=== PATIENT | female | born 1985 | race Caucasian/White ===

== ENCOUNTER 2017-01-25 08:50 | Emergency (ER) | payer SELFPAY ==
[~2017-01-25] VITALS: Ht 167.6 cm; Wt 68.0 kg
[2017-01-25 08:52] VITALS: BP 129/73; PULSE 96; RESP 18; TEMP 98.6; O2SAT 99
--- NOTE | 2017-01-25 11:22 | PD ---
HPI . Dentalgia Chief Complaint: Oral / Dental Pain or Problem Time Seen by Provider: 09:42 Travel History International Travel<30 days: No Contact w/Intl Traveler<30days: No Traveled to known affect area: No History of Present Illness HPI 31-year-old female presents emergency department for evaluation of dentalgia associated with tooth #31 and 32 that started this morning. She denies any fever, chills, malaise, chest pain, shortness breath. Patient has multiple cracked and broken teeth on the right lower side. Patient has history of depression and bipolar. Allergies-Medications (Allergen,Severity, Reaction): Coded Allergies: No Known Allergies (Unverified Allergy, Unknown, 01/25/17) Penicillins (Verified Allergy, Unknown, Hives, 01/25/17) Review of Systems Except as stated in HPI: all other systems reviewed are Neg Physical Exam Narrative GENERAL: Well-nourished, well-developed 31-year-old female patient in no acute distress. Nontoxic appearing. SKIN: Focused skin assessment warm/dry. HEAD: Normocephalic. Atraumatic. EYES: No scleral icterus. No injection or drainage. MOUTH: Mucous membranes moist, no lesions, tongue and gums appear normal. NECK: Supple, trachea midline. No JVD or lymphadenopathy. CARDIOVASCULAR: Regular rate and rhythm without murmurs, gallops, or rubs. RESPIRATORY: Breath sounds equal bilaterally. No accessory muscle use. GASTROINTESTINAL: Abdomen soft, non-tender, nondistended. MUSCULOSKELETAL: No cyanosis, or edema. Data Data Last Documented VS Vital Signs Date Time Temp Pulse Resp B/P (MAP) Pulse Ox O2 Delivery O2 Flow Rate FiO2 01/25/17 08:52 98.6 96 18 129/73 (91) 99 Room Air [facility] Medical Screen Exam Complete: Yes Emergency Medical Condition: Yes Differential Diagnosis Differential diagnoses include but not limited to dentalgia, dental caries, toothache Narrative Course 31-year-old female presents emergency department for evaluation of dentalgia on the right lower aspect associated with tooth #31 and 32. There is no signs or symptoms of localized infection, gingival edema or abscess formation. Patient has no fever or chills. Patient is nontoxic-appearing. Symptoms started this morning. A medical screening exam was performed: At the time of evaluation the presenting medical condition was determined not to be of an emergent nature. The patient was given the option of receiving additional care, but declined. Patient was given options for additional community resources from which to obtain care. The Patient Has Been advised to seek medical attention for their presenting complaint. The patient has been advised to return to the ER at any time if an emergent condition develops.m Primary Impression: Encounter for medical screening examination Disposition: 07 EDGO-ED USE ONLY Pili Goldman Jan 25, 2017 11:22
== END 2017-01-25 10:12 | disposition left against medical advice (07) ==
LOC: NEPD 08:50
DX: K08.89 Other specified disorders of teeth and supporting structures (principal); F31.9 Bipolar disorder, unspecified
CPT/HCPCS: 99281

== ENCOUNTER 2017-02-20 13:01 | Emergency (ER) | payer SELFPAY ==
[~2017-02-20] VITALS: Ht 167.6 cm; Wt 68.0 kg
[2017-02-20 13:02] VITALS: BP 135/85; PULSE 97; RESP 18; TEMP 98.7; O2SAT 99
[2017-02-20] MEDS ORDERED: CELE20TA PO (14:09)
[2017-02-20] MEDS ORDERED: TRAZ50TA12 PO (14:09)
[2017-02-20] MEDS ORDERED: CLIN150C14 PO (14:59)
--- NOTE | 2017-02-20 14:59 | PD ---
HPI Chief Complaint: Skin Problem Time Seen by Provider: 14:29 Travel History International Travel<30 days: No Contact w/Intl Traveler<30days: No Traveled to known affect area: No History of Present Illness HPI The patient's 31 years old and complains of dental pain on the right lower side. She has had intermittent dental pain for one day. Associated symptoms include facial swelling. It also feels warm to the touch. She was seen here previously and told she had no infectious process however should she develop erythema or warmth to return and she returns today and consequently. PFSH Past Medical History Diminished Hearing: No Gastrointestinal Disorders: Yes (Hep C) Tetanus Vaccination: Unknown ?: Not LMP: 02/03/17 Past Surgical History Surgical History: No Previous Surgery Social History Alcohol Use: No Tobacco Use: Yes (/2 ppd) Substance Use: No Allergies-Medications (Allergen,Severity, Reaction): Coded Allergies: No Known Allergies (Unverified Allergy, Unknown, 01/25/17) Penicillins (Verified Allergy, Unknown, Hives, 01/25/17) Reported Meds & Prescriptions Reported Meds & Active Scripts Active Clindamycin (Clindamycin HCl) 150 Mg Cap 450 Mg PO Q8HR 7 Days Reported Celexa (Citalopram Hydrobromide) 20 Mg Tab 20 Mg PO DAILY Trazodone (Trazodone HCl) 50 Mg Tab 50 Mg PO HS Review of Systems General / Constitutional: No: Fever HENT: No: Headaches Cardiovascular: No: Chest Pain or Discomfort Respiratory: No: Shortness of Breath Physical Exam Narrative GENERAL: 31 yo F, WNWD, NAD DENTITION: Poor dentition with multiple dental fracture. Tenderness along lower right molars. Minimal swelling/tenderness about the R mandibular ramus. SKIN: Warm and dry. HEAD: Normocephalic. EYES: No scleral icterus. No injection or drainage. NECK: Supple, trachea midline. No JVD or lymphadenopathy. Data Data Last Documented VS Vital Signs Date Time Temp Pulse Resp B/P (MAP) Pulse Ox O2 Delivery O2 Flow Rate FiO2 02/20/17 13:02 98.7 97 18 135/85 (102) 99 VS reviewed Orders Orders Ed Discharge Order (02/20/17 15:08) MDM Medical Decision Making Medical Screen Exam Complete: Yes Emergency Medical Condition: Yes Medical Record Reviewed: Yes Differential Diagnosis carry, fracture, abscess Narrative Course pcn allergy clinda script dc with dentist follow up Diagnosis Primary Impression: Dentalgia Referrals: Dentist 2 days Med/Other Pt SpecificInfo: Prescription(s) given Scripts Clindamycin (Clindamycin) 150 Mg Cap 450 MG PO Q8HR for Infection for 7 Days, CAP 0 Refills Prov: Todd Carmona MD 02/20/17 Disposition: 01 DISCHARGE HOME Condition: Stable Todd Carmona MD Feb 20, 2017 14:59
== END 2017-02-20 15:29 | disposition home or self-care (01) ==
LOC: NEPD 13:01
DX: K08.89 Other specified disorders of teeth and supporting structures (principal); F17.200 Nicotine dependence, unspecified, uncomplicated; Z86.19 Personal history of other infectious and parasitic diseases; Z79.899 Other long term (current) drug therapy
CPT/HCPCS: 99283

== ENCOUNTER 2017-05-09 13:12 | Inpatient (IN) | payer SELFPAY ==
[~2017-05-09 13:12] MED LIST: CELE20TA PO; CLIN150C14 PO; TRAZ50TA12 PO
[2017-05-09 13:59] VITALS: BP 104/56; PULSE 126; TEMP 98.5; O2SAT 97
[2017-05-09 14:36] LABS: BILIRUBIN, URINE NEG (NEG); BLOOD, URINE NEG (NEG); GLUCOSE,URINE NEG (NEG); HYALINE CAST, URINE 8 /lpf (RARE); KETONE, URINE 40 mg/dL (NEG); MUCUS URINE FEW /lpf (OCC); NITRITE,URINE NEG (NEG); PH, URINE 5.5 (5.0-8.5); SQUAMOUS EPITHELIAL CELL URINE 1 /hpf (0-5); URINE COLOR YELLOW (YELLW/STRAW); URINE LEUKOCYTE ESTERASE NEG (NEG)
[2017-05-09 14:43] LABS: AUTOMATED NEUTROPHIL # 12.3 TH/MM3 (1.8-7.7); BASOPHIL # 0.1 TH/MM3 (0-0.2); BASOPHIL % 0.5 % (0.0-2.0); EOSINOPHIL # 0.1 TH/MM3 (0-0.4); EOSINOPHIL % 0.7 % (0.0-4.0); HEMATOCRIT 42.3 % (35.0-46.0); HEMOGLOBIN 14.1 GM/DL (11.6-15.3); LYMPH % 16.4 % (9.0-44.0); LYMPHOCYTE # 2.6 TH/MM3 (1.0-4.8); MEAN CELL VOLUME 91.6 FL (80.0-100.0); MEAN CORPUSCULAR HEMOGLOBIN 30.6 PG (27.0-34.0); MEAN CORPUSCULAR HGB CONC 33.4 % (32.0-36.0); MEAN PLATELET VOLUME 8.2 FL (7.0-11.0); MONO % 5.5 % (0.0-8.0); MONOCYTE # 0.9 TH/MM3 (0-0.9); NEUT % 76.9 % (16.0-70.0); PLATELET COUNT 416 TH/MM3 (150-450); RED BLOOD COUNT 4.62 MIL/MM3 (4.00-5.30); RED CELL DISTRIBUTION WIDTH 13.5 % (11.6-17.2)
--- NOTE | 2017-05-09 14:43 | PD ---
HPI Chief Complaint: Medical Clearance Time Seen by Provider: 14:39 Travel History International Travel<30 days: No Contact w/Intl Traveler<30days: No Traveled to known affect area: No History of Present Illness HPI patient is here c/o nausea. patient over past 3 days due to tooth infection has been taking advil, bc powder medications as well as started an antibiotic. patient states that she is not SI/HI and does not have any tinnitus at this time. patient states taht she has taken approximately 20 tabs a day of advil/ bc powders. when she mentioned to her dentist that she was felling nauseous they advised her to come to ER. all:pcn hep c PFSH Past Medical History Diminished Hearing: No Gastrointestinal Disorders: Yes (Hep C) Social History Alcohol Use: No Tobacco Use: Yes (03/13 ppd) Substance Use: No Allergies-Medications (Allergen,Severity, Reaction): Coded Allergies: Penicillins (Verified Allergy, Unknown, Hives, 05/09/17) Reported Meds & Prescriptions Reported Meds & Active Scripts Active Clindamycin (Clindamycin HCl) 150 Mg Cap 450 Mg PO Q8HR 7 Days Reported Lamictal (Lamotrigine) 100 Mg Tab 100 Mg PO DAILY Buspirone (Buspirone HCl) 15 Mg Tab 15 Mg PO BID Celexa (Citalopram Hydrobromide) 20 Mg Tab 20 Mg PO DAILY Trazodone (Trazodone HCl) 50 Mg Tab 50 Mg PO HS Review of Systems Except as stated in HPI: all other systems reviewed are Neg General / Constitutional: No: Fever Eyes: No: Visual changes HENT: No: Headaches Cardiovascular: No: Chest Pain or Discomfort Respiratory: No: Shortness of Breath Gastrointestinal: Positive: Nausea Genitourinary: No: Dysuria Musculoskeletal: No: Pain Skin: No Rash Neurologic: No: Weakness Psychiatric: No: Depression Endocrine: No: Polydipsia Hematologic/Lymphatic: No: Easy Bruising Physical Exam Narrative GENERAL: SKIN: Warm and dry. HEAD: Atraumatic. Normocephalic. EYES: Pupils equal and round. No scleral icterus. No injection or drainage. ENT: No nasal bleeding or discharge. Mucous membranes pink and moist. NECK: Trachea midline. No JVD. CARDIOVASCULAR: Regular rate and rhythm. RESPIRATORY: No accessory muscle use. Clear to auscultation. Breath sounds equal bilaterally. GASTROINTESTINAL: Abdomen soft, non-tender, nondistended. MUSCULOSKELETAL: Extremities without clubbing, cyanosis, or edema. No obvious deformities. NEUROLOGICAL: Awake and alert. No obvious cranial nerve deficits. Motor grossly within normal limits. Five out of 5 muscle strength in the arms and legs. Normal speech. PSYCHIATRIC: Appropriate mood and affect; insight and judgment normal. Data Data Last Documented VS Vital Signs Date Time Temp Pulse Resp B/P (MAP) Pulse Ox O2 Delivery O2 Flow Rate FiO2 05/09/17 13:59 98.5 126 104/56 (72) 97 Room Air Orders Orders Complete Blood Count With Diff (05/09/17 13:59) Basic Metabolic Panel (Bmp) (05/09/17 13:59) Urinalysis - C+S If Indicated (05/09/17 13:59) Ed Urine Pregnancytest Poc (05/09/17 13:59) Salicylates (Aspirin) (05/09/17 14:37) Tylenol (Acetaminophen) (05/09/17 14:37) Ondansetron Odt (Zofran Odt) (05/09/17 15:00) Iv Access Insert/Monitor (05/09/17 15:34) Ecg Monitoring (05/09/17 15:34) Oximetry (05/09/17 15:34) NPO (05/09/17 15:34) Sodium Chlor 0.9% 1000 Ml Inj (Ns 1000 M (05/09/17 15:34) Sodium Bicarbonate 8.4% Inj (Sodium Bica (05/09/17 15:45) Labs Laboratory Tests Test 05/09/17 14:05 05/09/17 14:17 Urine Color YELLOW Urine Turbidity HAZY Urine pH 5.5 Urine Specific [place] 1.031 Urine Protein 30 mg/dL Urine Glucose (UA) NEG mg/dL Urine Ketones 40 mg/dL Urine Occult Blood NEG Urine Nitrite NEG Urine Bilirubin NEG Urine Urobilinogen LESS THAN 2.0 MG/DL Urine Leukocyte Esterase NEG Urine RBC 1 /hpf Urine WBC 7 /hpf Urine Squamous Epithelial Cells 1 /hpf Urine Hyaline Casts 8 /lpf Urine Mucus FEW /lpf Microscopic Urinalysis Comment CULT NOT INDICATED White Blood Count 16.0 TH/MM3 Red Blood Count 4.62 MIL/MM3 Hemoglobin 14.1 GM/DL Hematocrit 42.3 % Mean Corpuscular Volume 91.6 FL Mean Corpuscular Hemoglobin 30.6 PG Mean Corpuscular Hemoglobin Concent 33.4 % Red Cell Distribution Width 13.5 % Platelet Count 416 TH/MM3 Mean Platelet Volume 8.2 FL Neutrophils (%) (Auto) 76.9 % Lymphocytes (%) (Auto) 16.4 % Monocytes (%) (Auto) 5.5 % Eosinophils (%) (Auto) 0.7 % Basophils (%) (Auto) 0.5 % Neutrophils # (Auto) 12.3 TH/MM3 Lymphocytes # (Auto) 2.6 TH/MM3 Monocytes # (Auto) 0.9 TH/MM3 Eosinophils # (Auto) 0.1 TH/MM3 Basophils # (Auto) 0.1 TH/MM3 CBC Comment AUTO DIFF Differential Comment AUTO DIFF CONFIRMED Blood Urea Nitrogen 17 MG/DL Creatinine 1.29 MG/DL Random Glucose 121 MG/DL Calcium Level 9.0 MG/DL Sodium Level 136 MEQ/L Potassium Level 3.6 MEQ/L Chloride Level 107 MEQ/L Carbon Dioxide Level 22.0 MEQ/L Anion Gap 7 MEQ/L Estimat Glomerular Filtration Rate 48 ML/MIN Salicylates Level 59.4 MG/DL Acetaminophen Level LESS THAN 2.0 MCG/ML MDM Medical Decision Making Medical Screen Exam Complete: Yes Emergency Medical Condition: Yes Medical Record Reviewed: Yes Differential Diagnosis salicylate related adverse event nausea v poisoning v liver failure v renal failure v tylenol od accidental v abx related nausea Narrative Course CBC SHOWS LEUKOCYTOSIS WHICH IS C/W HER TOOTH INFECTION, FOR WHICH SHE IS ON ANTIBIOTICS ELECTROLYTE NORMAL EXCEPT GFR 48 AND CREATININE 1.29 UA PH 5.5 AND NO E/O UTI NORMAL TYLENOL BUT SALICYLATE LEVEL 59.4 WHICH IS ELEVATED, WILL GIVE BICARB TO ALKALINIZE URINE AND CONTINUE IVF HYDRATION Diagnosis Primary Impression: Accidental poisoning by salicylates Qualified Codes: T39.091A - Poisoning by salicylates, accidental ( unintentional), initial encounter Liam Gaffney MD May 09, 2017 14:43
[2017-05-09] MEDS ORDERED: BUSP15TA PO (14:47)
[2017-05-09] MEDS ORDERED: LAMO100 PO (14:47)
[2017-05-09 15:00] LABS: CREATININE 1.29 MG/DL (0.50-1.00)
[2017-05-09] MEDS ORDERED: ONDANSETRON ODT 4 MG TAB PO/SL ONE (15:00)
[2017-05-09] MEDS ORDERED: SODIUM CHLOR 0.9% 1000 ML INJ 1,000 ML IV SCH ×2 (15:34→16:08)
[2017-05-09] MEDS ORDERED: SODIUM BICARBONATE 8.4% INJ 50 MEQ/50 ML SYR IV PUSH ONE (15:45)
[2017-05-09 16:00] VITALS: BP 108/62; PULSE 122; RESP 20; O2SAT 100
[2017-05-09] MEDS ORDERED: SODIUM CHLORIDE 0.9% FLUSH 10 ML FLUSH IV FLUSH PRN (16:15)
[2017-05-09] MEDS ORDERED: NALOXONE HCL 0.4 MG/ML AMP IV PUSH PRN (16:15)
--- NOTE | 2017-05-09 16:24 | HHI.HP ---
HPI Service [facility] Primary [facility] Physician Non-Staff Admission Diagnosis ACCIDENTAL SALICYLATE POISONING Diagnoses: Travel History International Travel<30 Days: No Contact w/Intl Traveler <30 Da: No Traveled to Known Affected Are: No History of Present Illness From patient, ER physician communication, interview of medical records. bc powders and goodies powders, and Advil for past 2- 3 days because of toothache went to dentist yesterday was prescribed clinda now started decreased hearing "like under the water"; also had nausea and vomited x 1 but is black in color no black or red stool no blood in urine no abominal pain Review of Systems Except as stated in HPI: all other systems reviewed are Neg Past Family Social History Past Medical History hepatitis c - recently diagnosed takes trazodone, celexa, lamotrigine and buspar bipolar disorder Past Surgical History none Allergies: Coded Allergies: Penicillins (Verified Allergy, Unknown, Hives, 05/09/17) Family History none that she knows of Social History half a pack a day smoker no etoh abuse 18 months sober from drugs- used to use dilaudid iv Physical Exam Vital Signs Vital Signs Date Time Temp Pulse Resp B/P (MAP) Pulse Ox O2 Delivery O2 Flow Rate FiO2 05/09/17 13:59 98.5 126 104/56 (72) 97 Room Air Physical Exam GENERAL: This is a well-nourished, well-developed patient, in no apparent distress. SKIN: No rashes, ecchymoses or lesions. Cool and dry. HEAD: Atraumatic. Normocephalic. No temporal or scalp tenderness. EYES: Pupils equal round and reactive. Extraocular motions intact. No scleral icterus. No injection or drainage. ENT: Nose without bleeding, purulent drainage or septal hematoma. airway patent. NECK: Trachea midline. No JVD . Supple, nontender, no meningeal signs. CARDIOVASCULAR: Regular rate and rhythm without murmurs, gallops, or rubs. RESPIRATORY: Clear to auscultation. Breath sounds equal bilaterally. No wheezes , rales, or rhonchi. GASTROINTESTINAL: Abdomen soft, non-tender, nondistended. No guarding. MUSCULOSKELETAL: Extremities without clubbing, cyanosis, or edema. . No calf tenderness. NEUROLOGICAL: Awake and alert. Motor and sensory grossly within normal limits. Normal speech. Laboratory Laboratory Tests Test 05/09/17 14:05 05/09/17 14:17 Urine Color YELLOW Urine Turbidity HAZY Urine pH 5.5 Urine Specific [place] 1.031 Urine Protein 30 Urine Glucose (UA) NEG Urine Ketones 40 Urine Occult Blood NEG Urine Nitrite NEG Urine Bilirubin NEG Urine Urobilinogen LESS THAN 2.0 Urine Leukocyte Esterase NEG Urine RBC 1 Urine WBC 7 Urine Squamous Epithelial Cells 1 Urine Hyaline Casts 8 Urine Mucus FEW Microscopic Urinalysis Comment CULT NOT INDICATED White Blood Count 16.0 Red Blood Count 4.62 Hemoglobin 14.1 Hematocrit 42.3 Mean Corpuscular Volume 91.6 Mean Corpuscular Hemoglobin 30.6 Mean Corpuscular Hemoglobin Concent 33.4 Red Cell Distribution Width 13.5 Platelet Count 416 Mean Platelet Volume 8.2 Neutrophils (%) (Auto) 76.9 Lymphocytes (%) (Auto) 16.4 Monocytes (%) (Auto) 5.5 Eosinophils (%) (Auto) 0.7 Basophils (%) (Auto) 0.5 Neutrophils # (Auto) 12.3 Lymphocytes # (Auto) 2.6 Monocytes # (Auto) 0.9 Eosinophils # (Auto) 0.1 Basophils # (Auto) 0.1 CBC Comment AUTO DIFF Differential Comment AUTO DIFF CONFIRMED Blood Urea Nitrogen 17 Creatinine 1.29 Random Glucose 121 Calcium Level 9.0 Sodium Level 136 Potassium Level 3.6 Chloride Level 107 Carbon Dioxide Level 22.0 Anion Gap 7 Estimat Glomerular Filtration Rate 48 Salicylates Level 59.4 Acetaminophen Level LESS THAN 2.0 Result Diagram: 05/09/17 1417 05/09/17 1417 Caprini VTE Risk Assessment Caprini VTE Risk Assessment: No/Low Risk (score <= 1) Caprini Risk Assessment Model Point Value = 1 Point Value = 2 Point Value = 3 Point Value = 5 Age 41-60 Minor surgery BMI > 25 kg/m2 Swollen legs Varicose veins or History of unexplained or recurrent spontaneous Oral contraceptives or hormone replacement Sepsis (< 1 month) Serious lung disease, including pneumonia (< 1 month) Abnormal pulmonary function Acute myocardial infarction Congestive heart failure (< 1 month) History of inflammatory bowel disease Medical patient at bed rest Age 61-74 Arthroscopic surgery Major open surgery (> 45 min) Laparoscopic surgery (> 45 min) Malignancy Confined to bed (> 72 hours) Immobilizing plaster cast Central venous access Age >= 75 History of VTE Family history of VTE Factor V Leiden Prothrombin [id number] Lupus anticoagulant Anticardiolipin antibodies Elevated serum homocysteine Heparin-induced thrombocytopenia Other congenital or acquired thrombophilia Stroke (< 1 month) Elective arthroplasty Hip, pelvis, or leg fracture Acute spinal cord injury (< 1 month) Prophylaxis Regimen Total Risk Factor Score Risk Level Prophylaxis Regimen 0-1 Low Early ambulation 2 Moderate Order ONE of the following: *Sequential Compression Device (SCD) *Heparin 5000 units SQ BID 3-4 Higher Order ONE of the following medications: *Heparin 5000 units SQ TID *Enoxaparin/Lovenox 40 mg SQ daily (WT < 150 kg, CrCl > 30 mL/min) *Enoxaparin/Lovenox 30 mg SQ daily (WT < 150 kg, CrCl > 10-29 mL/min) *Enoxaparin/Lovenox 30 mg SQ BID (WT < 150 kg, CrCl > 30 mL/min) AND/OR *Sequential Compression Device (SCD) 5 or more Highest Order ONE of the following medications: *Heparin 5000 units SQ TID (Preferred with Epidurals) *Enoxaparin/Lovenox 40 mg SQ daily (WT < 150 kg, CrCl > 30 mL/min) *Enoxaparin/Lovenox 30 mg SQ daily (WT < 150 kg, CrCl > 10-29 mL/min) *Enoxaparin/Lovenox 30 mg SQ BID (WT < 150 kg, CrCl > 30 mL/min) AND *Sequential Compression Device (SCD) Assessment and Plan Assessment and Plan Impression: ASA toxicity hearing loss secondary to above accidental overdose hx of hepatitis C hx of iv drug abuse- clean for 18 months Plan iv hydration start bicarb drip follow urine ph follow salicylcate blood levels urine tox screen nephro consult poison control recs reviewed with nurse HCO3 DRIP: 3 AMPS IN 1 LT D5W AT 150 ML HOUR ADD KCL 20-40 MEQ ABG, EKG RENAL CONSULT REPEAT BLOOD Q2H <30 THEN q4h hourly urine until ph 7.5-7.8 Discussed Condition With patient, ER MD, nursing staff Physician Certification 2 Midnight Certification Type: Admission for Inpatient Services Order for Inpatient Services The services are ordered in accordance with Medicare regulations or non- Medicare payer requirements, as applicable. In the case of services not specified as inpatient-only, they are appropriately provided as inpatient services in accordance with the 2-midnight benchmark. Estimated LOS (days): 2 days is the estimated time the patient will need to remain in the hospital, assuming treatment plan goals are met and no additional complications. Post-Hospital Plan: Home Richie Hatch MD May 09, 2017 16:24
[2017-05-09] MEDS ORDERED: SODIUM BICARBONATE 8.4% INJ 150 MEQ in WATER STERILE FOR INJ 850 ML IV SCH (16:30)
[2017-05-09 16:35] VITALS: PULSE 97; RESP 20; O2SAT 97
[2017-05-09 17:18] LABS: BICARBONATE 22.4 MEQ/L (21.0-32.0); CALCIUM 7.8 MG/DL (8.5-10.1)
[2017-05-09] MEDS: PANTOPRAZOLE SODIUM 40 MG VIAL IV PUSH SCH (18:00)
--- NOTE | 2017-05-09 18:17 | PD.CONS ---
HPI Service Nephrology Consult Requested By Dr. Hatch Reason for Consult Salicylate overdose Primary Care Physician Non-Staff History of Present Illness Patient is a 31-year-old white female with a history of toothache and she said it started about 3 days ago she started taking BC powder along with Advil and she stated she took about 20 BC powder yesterday as her toothache got worse, She then noticed some nausea and had some vomiting and stated that she felt like she is under the water with ringing in the ears, she presented with these complaints and noticed to have a salicylate level of 59.4. He was treated with 2 A of sodium bicarbonate IV fluids and started feeling better she did have some renal insufficiency creatinine of 1.3 which declined as well to 1. She has anion gap of 7 and there was no metabolic acidosis noted. Her pH was 7.44 a CO2 of 28 A base excess of -5 Review of Systems Constitutional: COMPLAINS OF: Fatigue Ears, nose, mouth, throat: COMPLAINS OF: Tinnitus, Toothache Past Family Social History Allergies: Coded Allergies: Penicillins (Verified Allergy, Unknown, Hives, 05/09/17) Past Medical History Toothache Bipolar disorder Hepatitis C Past Surgical History None Reported Medications Reported Meds & Active Scripts Active Clindamycin (Clindamycin HCl) 150 Mg Cap 450 Mg PO Q8HR 7 Days Reported Lamictal (Lamotrigine) 100 Mg Tab 100 Mg PO DAILY Buspirone (Buspirone HCl) 15 Mg Tab 15 Mg PO BID Celexa (Citalopram Hydrobromide) 20 Mg Tab 20 Mg PO DAILY Trazodone (Trazodone HCl) 50 Mg Tab 50 Mg PO HS Active Ordered Medications Current Medications Medications (Trade) Dose Ordered Sig/Luis Eduardo Route Start Time Stop Time Status Last Admin (NS Flush) 2 ml UNSCH PRN IV FLUSH 05/09/17 16:15 (NS Flush) 2 ml BID IV FLUSH 05/09/17 21:00 (Narcan Inj) 0.4 mg UNSCH PRN IV PUSH 05/09/17 16:15 (Protonix Inj) 40 mg Q12H IV PUSH 05/09/17 18:00 Sodium Bicarbonate 150 meq/Potassium Chloride 20 meq/ Dextrose 1,010 ml @ 150 mls/hr [id number] IV 05/09/17 19:00 Family History Noncontributory Social History Smokes half pack per day Physical Exam Vital Signs Vital Signs Date Time Temp Pulse Resp B/P (MAP) Pulse Ox O2 Delivery O2 Flow Rate FiO2 05/09/17 16:35 97 20 97 05/09/17 16:23 05/09/17 16:00 122 20 108/62 (77) 100 05/09/17 13:59 98.5 126 104/56 (72) 97 Room Air Physical Exam GENERAL: Well-nourished, well-developed patient. SKIN: Warm and dry. HEAD: Normocephalic. EYES: No scleral icterus. No injection or drainage. NECK: Supple, trachea midline. No JVD or lymphadenopathy. CARDIOVASCULAR: Regular rate and rhythm without murmurs, gallops, or rubs. RESPIRATORY: Breath sounds equal bilaterally. No accessory muscle use. GASTROINTESTINAL: Abdomen soft, non-tender, nondistended. EXTREMITIES: No cyanosis, or edema. NEUROLOGICAL: Awake, alert, and oriented x 3. Non-focal. Laboratory Laboratory Tests Test 05/09/17 14:05 05/09/17 14:17 05/09/17 16:45 05/09/17 16:55 Urine Color YELLOW Urine Turbidity HAZY Urine pH 5.5 Urine Specific [place] 1.031 Urine Protein 30 Urine Glucose (UA) NEG Urine Ketones 40 Urine Occult Blood NEG Urine Nitrite NEG Urine Bilirubin NEG Urine Urobilinogen LESS THAN 2.0 Urine Leukocyte Esterase NEG Urine RBC 1 Urine WBC 7 Urine Squamous Epithelial Cells 1 Urine Hyaline Casts 8 Urine Mucus FEW Microscopic Urinalysis Comment CULT NOT INDICATED White Blood Count 16.0 Red Blood Count 4.62 Hemoglobin 14.1 Hematocrit 42.3 Mean Corpuscular Volume 91.6 Mean Corpuscular Hemoglobin 30.6 Mean Corpuscular Hemoglobin Concent 33.4 Red Cell Distribution Width 13.5 Platelet Count 416 Mean Platelet Volume 8.2 Neutrophils (%) (Auto) 76.9 Lymphocytes (%) (Auto) 16.4 Monocytes (%) (Auto) 5.5 Eosinophils (%) (Auto) 0.7 Basophils (%) (Auto) 0.5 Neutrophils # (Auto) 12.3 Lymphocytes # (Auto) 2.6 Monocytes # (Auto) 0.9 Eosinophils # (Auto) 0.1 Basophils # (Auto) 0.1 CBC Comment AUTO DIFF Differential Comment AUTO DIFF CONFIRMED Blood Urea Nitrogen 17 17 Creatinine 1.29 1.00 Random Glucose 121 72 Calcium Level 9.0 7.8 Sodium Level 136 139 Potassium Level 3.6 3.6 Chloride Level 107 111 Carbon Dioxide Level 22.0 22.4 Anion Gap 7 6 Estimat Glomerular Filtration Rate 48 64 Salicylates Level 59.4 44.3 Acetaminophen Level LESS THAN 2.0 Blood Gas Puncture Site RT RADIAL Blood Gas Patient Temperature 98.6 Blood Gas HCO3 18 Blood Gas Base Excess -5.0 Blood Gas Oxygen Saturation 96 Arterial Blood pH 7.44 Arterial Blood Partial Pressure CO2 28 Arterial Blood Partial Pressure O2 103 Arterial Blood Oxygen Content 15.8 Arterial Blood Carboxyhemoglobin 1.5 Arterial Blood Methemoglobin 0.9 Blood Gas Hemoglobin 11.6 Oxygen Delivery Device ROOM AIR Blood Gas Inspired Oxygen 21 Test 05/09/17 17:05 Urine pH 6.0 Result Diagram: 05/09/17 1417 05/09/17 1645 Assessment and Plan Problem List: (1) Accidental poisoning by salicylates ICD Codes: T39.091A - Poisoning by salicylates, accidental (unintentional), initial encounter Status: Acute Plan: Patient has responded to conservative approach She has been doing well salicylate levels declined to 44.3 with conservative management Creatinine has improved There is no anion gap acidosis She appears to have 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 (2) Acute respiratory alkalosis ICD Codes: E87.3 - Alkalosis Plan: She has a initial respiratory alkalosis which is compensated Responding To Treatment Problem Qualifiers (1) Accidental poisoning by salicylates: Qualified Codes: T39.091A - Poisoning by salicylates, accidental (unintentional ), initial encounter Garrett Penny MD May 09, 2017 18:17
[2017-05-09] MEDS: SODIUM BICARBONATE IV SCH ×3 (19:30)
[2017-05-09] MEDS: [UNRECOGNIZED DRUG - OTHER] IV SCH ×3 (19:30)
[2017-05-09] MEDS: POTASSIUM CHLORIDE IV SCH ×3 (19:30)
[2017-05-09] MEDS: DEXTROSE 5% IV SCH ×3 (19:30)
[2017-05-09] MEDS: SODIUM CHLORIDE 0.9% FLUSH 10 ML FLUSH IV FLUSH SCH (21:00)
[2017-05-09 21:45] VITALS: BP 111/63; PULSE 89; RESP 20; TEMP 98; O2SAT 96
[2017-05-09 21:55] VITALS: PULSE 95
[2017-05-09 23:59] VITALS: PULSE 102
[2017-05-10] VITALS: BP 114/55; PULSE 108; RESP 20; TEMP 95.4; O2SAT 98
[2017-05-10 00:54] LABS: BICARBONATE 26.6 MEQ/L (21.0-32.0); CALCIUM 7.3 MG/DL (8.5-10.1); CREATININE 0.93 MG/DL (0.50-1.00)
[2017-05-10 01:11] LABS: CALCIUM-PROTEIN CORRECTED 7.8 MG/DL (8.5-10.1); TOTAL PROTEIN 6.1 GM/DL (6.4-8.2)
[2017-05-10] MEDS: POTASSIUM CHLORIDE IV SCH ×6 (02:22→08:28)
[2017-05-10] MEDS: [UNRECOGNIZED DRUG - OTHER] IV SCH ×6 (02:22→08:28)
[2017-05-10] MEDS: SODIUM BICARBONATE IV SCH ×6 (02:22→08:28)
[2017-05-10] MEDS: DEXTROSE 5% IV SCH ×6 (02:22→08:28)
[2017-05-10 04:00] VITALS: BP 119/72; PULSE 90; RESP 18; TEMP 98.4; O2SAT 96
[2017-05-10 04:03] LABS: AUTOMATED NEUTROPHIL # 4.4 TH/MM3 (1.8-7.7); BASOPHIL # 0.1 TH/MM3 (0-0.2); EOSINOPHIL # 0.2 TH/MM3 (0-0.4); EOSINOPHIL % 3.2 % (0.0-4.0); HEMATOCRIT 32.7 % (35.0-46.0); HEMOGLOBIN 11.2 GM/DL (11.6-15.3); LYMPH % 29.6 % (9.0-44.0); LYMPHOCYTE # 2.2 TH/MM3 (1.0-4.8); MEAN CELL VOLUME 91.4 FL (80.0-100.0); MEAN CORPUSCULAR HEMOGLOBIN 31.3 PG (27.0-34.0); MEAN CORPUSCULAR HGB CONC 34.2 % (32.0-36.0); MEAN PLATELET VOLUME 7.8 FL (7.0-11.0); MONO % 8.4 % (0.0-8.0); MONOCYTE # 0.6 TH/MM3 (0-0.9); NEUT % 57.8 % (16.0-70.0); PLATELET COUNT 270 TH/MM3 (150-450); RED BLOOD COUNT 3.57 MIL/MM3 (4.00-5.30); RED CELL DISTRIBUTION WIDTH 12.9 % (11.6-17.2); WHITE BLOOD COUNT 7.6 TH/MM3 (4.0-11.0)
[2017-05-10 04:37] LABS: BICARBONATE 27.7 MEQ/L (21.0-32.0); CALCIUM 7.1 MG/DL (8.5-10.1); CREATININE 0.95 MG/DL (0.50-1.00)
[2017-05-10 05:08] LABS: CALCIUM-PROTEIN CORRECTED 7.8 MG/DL (8.5-10.1); TOTAL PROTEIN 5.8 GM/DL (6.4-8.2)
[2017-05-10] MEDS: PANTOPRAZOLE SODIUM 40 MG VIAL IV PUSH SCH (05:17)
[2017-05-10 07:31] VITALS: PULSE 83
[2017-05-10 08:00] VITALS: BP 131/77; PULSE 80; RESP 16; TEMP 97.2; O2SAT 98
[2017-05-10] MEDS: SODIUM CHLORIDE 0.9% FLUSH 10 ML FLUSH IV FLUSH SCH (09:00)
--- NOTE | 2017-05-10 10:52 | HHI.PR ---
Subjective Remarks Follow-up accidental ASA toxicity 05/10/17-patient seen and examined, no longer on bicarbonate drip per poison control. Denies any chest pain, shortness of breath or hearing loss. Stable this morning. She states, she with follow-up with dentist Objective Vitals Vital Signs Date Time Temp Pulse Resp B/P (MAP) Pulse Ox O2 Delivery O2 Flow Rate FiO2 05/10/17 08:00 97.2 80 16 131/77 (95) 98 05/10/17 07:31 83 05/10/17 04:00 98.4 90 18 119/72 (88) 96 05/10/17 00:00 95.4 108 20 114/55 (74) 98 05/09/17 23:59 102 05/09/17 21:55 95 05/09/17 21:45 98.0 89 20 111/63 (79) 96 05/09/17 21:15 05/09/17 16:35 97 20 97 05/09/17 16:23 05/09/17 16:00 122 20 108/62 (77) 100 05/09/17 13:59 98.5 126 104/56 (72) 97 Room Air I/O 05/09/17 05/09/17 05/09/17 05/10/17 05/10/17 05/10/17 07:00 15:00 23:00 07:00 15:00 23:00 Intake Total 1000 ml 1360 ml Output Total 325 ml Balance 1000 ml 1035 ml Intake Oral 360 ml IV Total 1000 ml 1000 ml Output Urine Total 325 ml # Bowel Movements 0 Result Diagram: 05/10/17 0351 05/10/17 0351 Objective Remarks GENERAL: NAD SKIN: Warm and dry. HEAD: Normocephalic. EYES: No scleral icterus. No injection or drainage. NECK: Supple, trachea midline. No JVD or lymphadenopathy. Mouth: multiple decay teeth CARDIOVASCULAR: Regular rate and rhythm without murmurs, gallops, or rubs. RESPIRATORY: Breath sounds equal bilaterally. No accessory muscle use. GASTROINTESTINAL: Abdomen soft, non-tender, nondistended. MUSCULOSKELETAL: No cyanosis, or edema. BACK: Nontender without obvious deformity. No CVA tenderness. Procedures None A/P Problem List: (1) Accidental poisoning by salicylates ICD Code: T39.091A - Poisoning by salicylates, accidental (unintentional), initial encounter Status: Acute (2) Acute respiratory alkalosis ICD Code: E87.3 - Alkalosis Assessment and Plan 31-year-old female with Accidental poisoning by salicylates Appreciate input from nephrology, poison control Salicylate level 27.8 Patient is off bicarbonate drip Symptoms resolved Acute respiratory alkalosis Resolved Patient's condition tremendously improved since admission, therefore she'll be discharged home Discharge Planning Discharge patient to home Condition on discharge: Improved Regular Diet as tolerated Ad Jessy activity Rx written:None Follow-up with primary care physician in 1 week Problem Qualifiers (1) Accidental poisoning by salicylates: Qualified Codes: T39.091A - Poisoning by salicylates, accidental (unintentional ), initial encounter Zaire Pizarro MD May 10, 2017 10:52
--- NOTE | 2017-05-10 10:53 | EKG ---
Date Performed: 05/09/2017 Time Performed: 16:39:31 PTAGE: 31 years EKG: Sinus rhythm NORMAL ECG NO PRIOR TRACING DOCTOR: Jeremy Curran Interpretating Date/Time 05/10/2017 10:51:13
[2017-05-10] MEDS ORDERED: POTASSIUM CHLORIDE 10 MEQ CONTROLLED RELEASE TAB PO ONE (11:00)
[2017-05-10 12:00] VITALS: BP 138/77; PULSE 71; RESP 17; TEMP 97.3; O2SAT 98
== END 2017-05-10 12:54 | disposition home or self-care (01) | DRG 918 ==
LOC: NEPD 13:12 → NEDA 16:11 → OBSVTOIN 16:11 → NEDH 20:35 → N07A 21:19
PROVIDERS: ADMIT Hospitalist; ATTEND Hospitalist
DX: T39.091A Poisoning by salicylates, accidental (unintentional), initial encounter (principal); E87.3 Alkalosis; F31.9 Bipolar disorder, unspecified; B19.20 Unspecified viral hepatitis C without hepatic coma; K04.7 Periapical abscess without sinus; R11.2 Nausea with vomiting, unspecified; H91.90 Unspecified hearing loss, unspecified ear; N28.9 Disorder of kidney and ureter, unspecified; F17.210 Nicotine dependence, cigarettes, uncomplicated; Z88.0 Allergy status to penicillin
CPT/HCPCS: 36600; 80048; 80307; 81001; 81003; 82805; 84155; 84703; 85025; 93005; C9113; J3480; J7030; J7070

== ENCOUNTER 2017-06-24 12:35 | Emergency (ER) | payer SELFPAY ==
[~2017-06-24] VITALS: Ht 167.6 cm; Wt 62.0 kg
[~2017-06-24 12:35] MED LIST changes: +BUSP15TA PO; +LAMO100 PO
[2017-06-24 12:39] VITALS: BP 131/73; PULSE 100; RESP 16; TEMP 98.5; O2SAT 98
[2017-06-24] MEDS ORDERED: CLIN300C5 PO (13:11)
--- NOTE | 2017-06-24 13:12 | PD ---
HPI Chief Complaint: Oral / Dental Pain or Problem Time Seen by Provider: 13:05 Travel History International Travel<30 days: No Contact w/Intl Traveler<30days: No Traveled to known affect area: No History of Present Illness HPI 32-year-old female here with right lower dental pain for 2 months. Patient currently on Cipro for the dental pain prescribed by urgent care clinic and reports "it is not working". She denies fever or chills. No difficulty swallowing. She has swelling to the right lower side of her face. She reports throbbing, constant, nonradiating pain to the right jaw. Aggravated by chewing , heat/cold. No alleviating factors. PFSH Past Medical History Medical History: Denies Significant Hx Bipolar Disorder: Yes COPD: Yes Diminished Hearing: No Gastrointestinal Disorders: Yes (Hep C) Psychiatric: Yes (Bipolar) Reproductive: No Tetanus Vaccination: Unknown Influenza Vaccination: No ?: Not LMP: 06/13/17 Past Surgical History Surgical History: No Previous Surgery Social History Alcohol Use: No Tobacco Use: Yes (1/2 ppd) Substance Use: No Allergies-Medications (Allergen,Severity, Reaction): Coded Allergies: Penicillins (Verified Allergy, Unknown, Hives, 06/24/17) Reported Meds & Prescriptions Reported Meds & Active Scripts Active Clindamycin (Clindamycin HCl) 300 Mg Cap 300 Mg PO Q6H 10 Days Review of Systems Except as stated in HPI: all other systems reviewed are Neg General / Constitutional: No: Fever Eyes: No: Visual changes HENT: Positive: Dental Difficulties, No: Headaches Cardiovascular: No: Chest Pain or Discomfort Respiratory: No: Shortness of Breath Gastrointestinal: No: Abdominal Pain Genitourinary: No: Dysuria Physical Exam Narrative GENERAL: Alert and well-appearing 32-year-old female SKIN: Warm and dry. HEAD: Normocephalic. + Mild swelling to the right lower face near her jawline EYES: No injection or drainage. Mouth: Widespread dental decay. Decayed and fractured tooth of the right lower jaw with surrounding gum erythema. No swelling of the floor the mouth. Uvula is midline. Airways patent. Normal phonation. NECK: Supple, trachea midline. No lymphadenopathy. CARDIOVASCULAR: Regular rate and rhythm RESPIRATORY: Breath sounds equal bilaterally. No accessory muscle use. GASTROINTESTINAL: Abdomen soft, non-tender, nondistended. MUSCULOSKELETAL: No cyanosis, or edema. Data Data Last Documented VS Vital Signs Date Time Temp Pulse Resp B/P (MAP) Pulse Ox O2 Delivery O2 Flow Rate FiO2 06/24/17 12:39 98.5 100 16 131/73 (92) 98 MDM Medical Decision Making Medical Screen Exam Complete: Yes Emergency Medical Condition: Yes Differential Diagnosis Dental caries, dental abscess, periodontal disease Narrative Course 32-year-old female here with dental pain. Nontoxic appearing. Will be prescribed clindamycin Diagnosis Primary Impression: Dental abscess Referrals: Dentist Additional Instructions: Medication as directed. Follow-up with dentist. Scripts Clindamycin (Clindamycin) 300 Mg Cap 300 MG PO Q6H for Infection for 10 Days, #40 CAP 0 Refills Prov: Mer Pepper 06/24/17 Disposition: 01 DISCHARGE HOME Condition: Stable Mer Pepper Jun 24, 2017 13:12
== END 2017-06-24 13:50 | disposition home or self-care (01) ==
LOC: PHEFT 12:35
DX: K04.7 Periapical abscess without sinus (principal); F31.9 Bipolar disorder, unspecified; J44.9 Chronic obstructive pulmonary disease, unspecified; F17.200 Nicotine dependence, unspecified, uncomplicated; Z88.0 Allergy status to penicillin; Z86.19 Personal history of other infectious and parasitic diseases
CPT/HCPCS: 99283